=== PATIENT | female | born 1975 | race Two or more races ===

== ENCOUNTER 2022-03-15 12:08 | Emergency (ER) | payer SELFPAY ==
[~2022-03-15] VITALS: Ht 162.6 cm; Wt 62.1 kg
--- NOTE | 2022-03-15 12:25 | NUR ---
ASYA TO ER BED 9. PATIENT IS A/O X4 AND STATED THAT SHE HAD A FALL AND TWISTED HER RIGHT LEG/RLE; PAIN IS CURRENTLY RATED AT 4/10, TOLERATED AT THIS TIME. VS TAKEN.
--- NOTE | 2022-03-15 12:27 | NUR ---
DR SÁNCHEZ AT BEDSIDE W/ PATIENT
[2022-03-15] MEDS ORDERED: ACETAMINOPHEN ES 500 MG TABLET PO ONE (12:30)
[2022-03-15] MEDS ORDERED: IBUPROFEN 600 MG TABLET ONE (12:35)
[2022-03-15] MEDS ORDERED: ACETAMINOPHEN ES 500 MG TABLET ONE (12:35)
[2022-03-15] MEDS: IBUPROFEN 600 MG TABLET PO ONE ×2 (12:37→12:39)
--- NOTE | 2022-03-15 12:39 | NUR ---
PT REFUSED MOTRIN BUT ABLE TO TAKE TYLENOL INDICATED.
--- NOTE | 2022-03-15 12:40 | NUR ---
BED CONTROL SPECIALIST AT BEDSIDE
[2022-03-15 13:37] VITALS: BP 112/66
--- NOTE | 2022-03-15 13:38 | NUR ---
Patient discharged to home in stable condition. LICHA bandage applied to right knee/rle. Able to ambulate but assisted via wheelchair. Written and verbal after care instructions given. Patient verbalizes understanding of instruction.
== END 2022-03-15 13:39 | disposition home or self-care (01) ==
LOC: ER 12:11
DX: S83.501A Sprain of unspecified cruciate ligament of right knee, initial encounter (principal); X50.1XXA Overexertion from prolonged static or awkward postures, initial encounter; Y93.89 Activity, other specified; Y92.89 Other specified places as the place of occurrence of the external cause; Y99.8 Other external cause status
CPT/HCPCS: 73564-TC